=== PATIENT | female | born 1965 | race Asian ===

== ENCOUNTER → 2019-09-06 14:29 | Outpatient (CLI) | payer OTHER, SELFPAY ==
--- NOTE | 2019-09-06 | DI.MG.S_ITS ---
BILATERAL DIGITAL SCREENING MAMMOGRAM 3D/2D WITH CAD: 09/06/2019 CLINICAL: Routine screening. Comparison is made to exams dated: 05/08/2017 mammogram and 04/07/2016 mammogram - [facility]. The tissue of both breasts is heterogeneously dense. This may lower the sensitivity of mammography. Current study was also evaluated with a Computer Aided Detection (CAD) system. No significant masses, calcifications, or other findings are seen in either breast. There has been no significant interval change. IMPRESSION: NEGATIVE There is no mammographic evidence of malignancy. A 1 year screening mammogram is recommended. This exam was interpreted at Station ID: [id number]. NOTE: For mammograms, a report in lay terms will be sent to the patient. Approximately 15% of breast malignancies will not be visualized mammographically. In the management of a palpable breast mass, a negative mammogram must not discourage biopsy of a clinically suspicious lesion. Electronically Signed By: Errol villegas/akhil:09/06/2019 16:35:22 letter sent: Normal Exam ACR BI-RADS Category 1: Negative 3341F
== END ==
PROVIDERS: PCP Family Medicine; Referring Provider Family Medicine; Visit Provider Family Medicine
DX: Z12.31 Encounter for screening mammogram for malignant neoplasm of breast (principal)
CPT/HCPCS: 77063; 77067

== ENCOUNTER → 2021-07-24 14:10 | Outpatient (CLI) | payer OTHER, SELFPAY ==
--- NOTE | 2021-07-24 14:11 | DI.US.S_ITS ---
PROCEDURE: US PERIPH VENOUS LOW EXTREM LT INDICATIONS: PAIN, EDEMA TECHNIQUE: Real-time imaging, as well as color and pulse Doppler interrogation, were performed of the lower extremity deep veins from the inguinal ligament to the popliteal fossa. COMPARISON: None. FINDINGS: The common femoral, femoral and popliteal veins are normally compressible, and free of intraluminal thrombus. Color and pulse Doppler demonstrate normal phasic intraluminal flow. There is normal augmentation response to distal compression maneuver. Additional, dedicated ultrasound scanning is performed at the areas of pain. No focal ultrasound abnormalities are seen within these regions. IMPRESSION: Negative for deep venous thrombosis. Dictated by: Santos Platt M.D. on 07/24/2021 at 14:41 Approved by: Santos Platt M.D. on 07/24/2021 at 14:41
== END ==
PROVIDERS: PCP Family Medicine; Referring Provider Family Medicine; Visit Provider Family Medicine
DX: M79.89 Other specified soft tissue disorders (principal); M79.605 Pain in left leg
CPT/HCPCS: 93971

== ENCOUNTER 2022-06-29 21:17 | Emergency (ER) | payer OTHER, SELFPAY ==
[2022-06-29 21:24] VITALS: BP 167/91; PULSE 81; RESP 18; TEMP 36.5; O2SAT 98; BMI 26.5
--- NOTE | 2022-06-29 22:04 | ED.NAVMDI ---
HPI - Nausea/Vomiting/Diarrhea General Chief complaint: Nausea/Vomiting/Diarrhea Stated complaint: Thinks food poisoning Time Seen by Provider: 06/29/22 21:44 Source: patient Mode of arrival: Ambulatory Limitations: no limitations History of Present Illness HPI Narrative: Patient is a 56-year-old female who is here for evaluation of several hours of vomiting. She states that she think it was the oyster that she ate earlier this evening. She states that she baked the oysters and they were not raw. No one else ate the food. She states several hours later she started vomiting. She denies any fevers. Has not tried anything for the symptoms prior to arrival. Related Data Previous Rx's Medication Instructions Recorded ibuprofen 400 mg tablet See Rx Instructions PO TID PRN 03/19/21 pain #60 tabs ondansetron 4 mg disintegrating 4 mg PO Q6H PRN nausea and 06/30/22 tablet vomiting #14 tabs Allergies Allergy/AdvReac Type Severity Reaction Status Date / Time hydrocodone [From Vicodin] Allergy Severe LOSS OF Verified 06/06/20 08:48 VISION Review of Systems Constitutional Constitutional: Reports system reviewed and no additional complaints, except as documented Gastrointestinal Gastrointestinal: Reports system reviewed and no additional complaints, except as documented Genitourinary Genitourinary: Reports system reviewed and no additional complaints, except as documented Integumentary/Breasts Skin/Breast: Reports system reviewed and no additional complaints, except as documented Hematologic/Lymphatic On Anticoagulants: No Patient History Medical History Chicken pox Positive PPD (~1992) Skin rash Family History Mother Age: 86 Diabetes mellitus Social History marital status: Smoking Status: Current some day smoker alcohol intake: current substance use type: does not use Smoking Status: Current some day smoker Exam Initial Vital Signs Initial Vital Signs: Vital Signs Temperature 97.7 F 06/29/22 21:24 Pulse Rate 81 06/29/22 21:24 Respiratory Rate 18 06/29/22 21:24 Blood Pressure 167/91 H 06/29/22 21:24 Pulse Oximetry 98 06/29/22 21:24 Oxygen Delivery Method Room Air 06/29/22 21:24 [facility] Head: normal to inspection and normocephalic Resp Effort & Inspection: normal respiratory effort Auscultation: clear to auscultation bilaterally Cardio Rate: regular rate Rhythm: regular rhythm GI Inspection: normal to inspection Palpation: soft Skin General: no rashes or lesions noted Neuro General: patient alert, patient awake and moves all extremities Course Orders Ordered: Discontinued Medications Sodium Chloride (Normal Saline 0.9%) 1,000 mls @ 1,000 mls/hr IV BOLUS ONE Stop: 06/29/22 23:42 Last Infusion: 06/30/22 00:03 Dose: 0 mls/hr Documented By: Admin: 06/29/22 23:00 Dose: 1,000 mls/hr Documented By: GAVIN Ondansetron HCl (Ondansetron 4 Mg Odt) 4 mg PO NOW ONE Stop: 06/29/22 21:45 Last Admin: 06/29/22 22:08 Dose: 4 mg Documented By: FABIOLA Ondansetron HCl (Ondansetron 4 Mg/2 Ml Inj) 4 mg IV NOW ONE Stop: 06/29/22 22:44 Last Admin: 06/29/22 23:01 Dose: 4 mg Documented By: GAVIN Ondansetron HCl (Ondansetron 4 Mg Odt Prepack) 1 bottle MISC SEEINSTR ONE Stop: 06/30/22 00:25 Vital Signs Vital signs: Vital Signs - 8 hr 06/29/22 21:24 Temperature 97.7 F Pulse Rate 81 Respiratory Rate 18 Blood Pressure 167/91 H Pulse Oximetry 98 Oxygen Delivery Method Room Air MDM - Nausea/Vomiting/Diarrhea MDM Narrative Medical decision making narrative: Patient was given a dose of oral Zofran and then with a oral challenge she did vomit. She was then given IV Zofran and fluids. Afterwards she was able to tolerate a small amount of fluids. Did consider vibrio as a cause of her symptoms given the fact that she was eating oysters however she states that these were cooked. She is no rash. No fevers. We will hold on any antibiotics for now however she was informed that if her symptoms persist or worsen or she is vomiting despite the nausea medication that she needs to return to the emergency department for further evaluation. Both her and her was at bedside expressed understanding and agreement. Discharge Plan Departure Patient Disposition: Home Clinical Impression: Vomiting Instructions: DI for Vomiting -- Adult Activity Restrictions/Additional Instructions: I do recommend that you try to increase your fluid intake by drinking small amounts of fluid more frequently. Use the nausea medication as needed. Return to the emergency department for new or worsening symptoms. Prescriptions: New ondansetron 4 mg tablet,disintegrating 4 mg PO Q6H PRN (Reason: nausea and vomiting) Qty: 14 0RF No Action ibuprofen 400 mg tablet See Rx Instructions PO TID PRN (Reason: pain) Qty: 60 1RF Rx Instructions: Take one or two tablets up to 3 times a day as needed for pain Referrals: Mitch Schuster MD [Primary Care Provider] - Stand Alone Forms: Patient Portal/API
[2022-06-29] MEDS: ONDANSETRON 4 MG ODT PO (22:08)
[2022-06-29] MEDS: SODIUM CHLORIDE 0.9% 1,000 ML 1000 ML IV (23:00)
[2022-06-29] MEDS: ONDANSETRON 4 MG/2 ML INJ IV (23:01)
[2022-06-30] MEDS: ONDANSETRON 4 MG ODT PREPACK 1 BOTTLE MISC (00:32)
[2022-06-30 00:44] VITALS: BP 127/72; PULSE 70; RESP 16; O2SAT 99
== END 2022-06-30 00:45 | disposition home or self-care (01) ==
PROVIDERS: Emergency Provider Emergency Medicine; PCP Family Medicine
DX: R11.2 Nausea with vomiting, unspecified (principal)
CPT/HCPCS: 96361; 96374; 99284; J2405

== ENCOUNTER → 2022-10-07 12:12 | Outpatient (CLI) | payer OTHER, SELFPAY ==
[2022-10-07 13:15] LABS: Creatinine Urine Random 25.4 mg/dL
[2022-10-07 13:16] LABS: Microalbumin Urine Random < 0.6 mg/dL (0-1.6)
== END ==
PROVIDERS: PCP Family Medicine; Visit Provider Physician Assistant
DX: E78.5 Hyperlipidemia, unspecified (principal); I10 Essential (primary) hypertension; K21.9 Gastro-esophageal reflux disease without esophagitis; R73.01 Impaired fasting glucose; R73.03 Prediabetes
CPT/HCPCS: 82043; 82570

== ENCOUNTER → 2022-10-10 07:38 | Outpatient (CLI) | payer OTHER, SELFPAY ==
[2022-10-10 08:31] LABS: Add Manual Diff / Slide Review NO; Basophils Absolute Auto 100 /uL (0-100); Basophils Percent Auto 1.7 % (0-2); Eosinophils Absolute Auto 100 /uL (0-450); Eosinophils Percent Auto 2.9 % (2-4); Hematocrit 37.9 % (36-46); Hemoglobin 12.5 g/dL (12.0-16.0); Lymphocytes Absolute Auto 1800 /uL (1100-4500); Lymphocytes Percent Auto 46.9 % (25-40); Mean Corpuscular Hemoglobin 30.8 PG (26-34); Mean Corpuscular Volume 93.4 fL (80-100); Monocytes Absolute Auto 300 /uL (0-900); Monocytes Percent Auto 7.7 % (3-14); Neutrophils Absolute Auto 1600 /uL (1500-7000); Neutrophils Percent Auto 40.8 % (50-75); Platelet Count 247 X10^3/uL (150-400); Red Blood Cell Count 4.06 X10^6/uL (4.0-5.2); Red Cell Distribution Width 12.1 % (11.6-14.8); White Blood Cell Count 3.9 X10^3/uL (4.5-11.0)
[2022-10-10 08:46] LABS: Alanine Aminotransferase 24 IU/L (<35); Albumin 4.2 g/dL (3.5-5.0); Albumin Globulin Ratio 1.3 (1.0-2.8); Alkaline Phosphatase 60 U/L (38-126); Aspartate Aminotransferase 50 IU/L (14-36); BUN Creatinine Ratio 16.2 (6-22); Bilirubin Total 0.6 mg/dL (0.2-1.3); Blood Urea Nitrogen 11 mg/dL (7-17); Calcium 8.9 mg/dL (8.4-10.2); Carbon Dioxide 29 mmol/L (22-32); Chloride 105 mmol/L (98-107); Cholesterol 192 mg/dL (140-199); Estimated Glomerular Filt Rate > 60 mL/min (>60); Globulin 3.2 g/dL (1.7-4.1); Glucose 90 mg/dL (70-100); HDL Cholesterol 49 mg/dL (40-60); HEMOLYSIS < 15 (0-50); LDL Cholesterol Calculated 126 mg/dL (<100); Sodium 139 mmol/L (137-145); Total Protein 7.4 g/dL (6.3-8.2); Triglycerides 83 mg/dL (35-150)
[2022-10-10 09:15] LABS: TSH w/ Reflex to FT4 2.43 uIU/mL (0.47-4.68)
[2022-10-13 19:36] LABS: Fecal Immunochemical Test Negative (Negative)
== END ==
PROVIDERS: PCP Family Medicine; Referring Provider Physician Assistant; Visit Provider Physician Assistant
DX: E78.5 Hyperlipidemia, unspecified (principal); I10 Essential (primary) hypertension; K21.9 Gastro-esophageal reflux disease without esophagitis; M79.606 Pain in leg, unspecified; M79.89 Other specified soft tissue disorders; R21 Rash and other nonspecific skin eruption; R73.01 Impaired fasting glucose; Z12.11 Encounter for screening for malignant neoplasm of colon; Z12.39 Encounter for other screening for malignant neoplasm of breast
CPT/HCPCS: 36415; 80053; 80061; 82274; 84443; 85025

== ENCOUNTER → 2022-10-14 07:57 | Outpatient (CLI) | payer OTHER, SELFPAY ==
--- NOTE | 2022-10-14 07:58 | DI.MG.S_ITS ---
BILATERAL DIGITAL SCREENING MAMMOGRAM 3D/2D WITH CAD: 10/14/2022 CLINICAL: Routine screening. Comparison is made to exams dated: 09/06/2019 mammogram, 05/08/2017 mammogram, and 04/07/2016 mammogram - [facility]. Both breasts are heterogeneously dense, which may obscure small masses (category c / 51-75% glandular tissue). Current study was also evaluated with a Computer Aided Detection (CAD) system. No significant masses, calcifications, or other findings are seen in either breast. There has been no significant interval change. IMPRESSION: NEGATIVE There is no mammographic evidence of malignancy. A 1 year screening mammogram is recommended. Based on the Tyrer Cuzick model (a risk assessment model) the patient's lifetime risk is 12.1% and her 10 year risk is 4.7%. According to the ACR, ACS, and NCCN guidelines, an annual breast MRI exam along with mammogram is recommended if the patient's lifetime risk is 20% or greater. This exam was interpreted at Station ID: [id number]. NOTE: For mammograms, a report in lay terms will be sent to the patient. Approximately 15% of breast malignancies will not be visualized mammographically. In the management of a palpable breast mass, a negative mammogram must not discourage biopsy of a clinically suspicious lesion. Electronically Signed By: Errol villegas/akhil:10/14/2022 20:45:46 letter sent: Normal Exam ACR BI-RADS Category 1: Negative 3341F
== END ==
PROVIDERS: PCP Family Medicine; Referring Provider Family Medicine; Visit Provider Family Medicine
DX: Z12.31 Encounter for screening mammogram for malignant neoplasm of breast (principal); E78.5 Hyperlipidemia, unspecified; I10 Essential (primary) hypertension; K21.9 Gastro-esophageal reflux disease without esophagitis; M79.606 Pain in leg, unspecified; M79.89 Other specified soft tissue disorders; R21 Rash and other nonspecific skin eruption; R73.01 Impaired fasting glucose; Z12.11 Encounter for screening for malignant neoplasm of colon
CPT/HCPCS: 77063; 77067

== ENCOUNTER → 2023-02-25 11:17 | Outpatient (CLI) | payer OTHER, SELFPAY ==
--- NOTE | 2023-02-25 11:18 | DI.US.S_ITS ---
PROCEDURE: US PERIPH VENOUS LOW EXTREM RT INDICATIONS: PAIN TECHNIQUE: Real-time imaging, as well as color and pulse Doppler interrogation, were performed of the lower extremity deep veins from the inguinal ligament to the popliteal fossa, with documentation of the visualized calf veins. COMPARISON: None. FINDINGS: The common femoral, femoral, popliteal, and the visualized calf veins are normally compressible, and free of intraluminal thrombus. Color and pulse Doppler demonstrate normal phasic intraluminal flow. There is normal augmentation response to distal compression maneuver. IMPRESSION: No findings of lower extremity deep venous thrombosis. Dictated by: Laura Lockhart M.D. on 02/25/2023 at 12:22 Approved by: Laura Lockhart M.D. on 02/25/2023 at 12:23
== END ==
PROVIDERS: PCP Family Medicine; Referring Provider Family Medicine; Visit Provider Family Medicine
DX: M79.604 Pain in right leg (principal)
CPT/HCPCS: 93971

== ENCOUNTER 2023-05-21 07:36 | Emergency (ER) | payer OTHER, SELFPAY ==
--- NOTE | 2023-05-21 07:44 | DI.RAD.S_ITS ---
PROCEDURE: XR HAND RT MIN 3V INDICATIONS: injury at work TECHNIQUE: 3 views of the hand(s) acquired. COMPARISON: None. FINDINGS: Bones: No fractures or dislocations. Carpal bones are normally aligned. No suspicious bony lesions. Soft tissues: No suspicious soft tissue calcifications. Severe dorsal swelling. IMPRESSION: Severe dorsal swelling of the hand. No displaced fracture. If pain persists with conservative management, consider repeat radiographs in 10-14 days or cross sectional imaging such as CT or MRI for further assessment. Dictated by: El Haywood M.D. on 05/21/2023 at 8:28 Approved by: El Haywood M.D. on 05/21/2023 at 8:29
[2023-05-21 07:45] VITALS: BP 147/98; PULSE 91; RESP 18; TEMP 36.8; O2SAT 99; BMI 24.7
--- NOTE | 2023-05-21 08:09 | ED.GENADULT ---
HPI - General Adult General Chief complaint: Extremity Injury, Upper Stated complaint: rt hand injury/swelling Time Seen by Provider: 05/21/23 07:56 Source: patient Mode of arrival: Family Vehicle History of Present Illness HPI narrative: Patient is a 57-year-old female who last evening injured her right hand while she was at work. She states she got it caught in a piece of machinery. She states that immediately afterwards she thought she was going to be okay and she did sustain an abrasion to the back of the hand. As the night went on until this morning she has had more swelling. She is difficulty closing her fingers because of the swelling. The injuries located on the dorsum of the hand. No wrist elbow or shoulder injury. Related Data Previous Rx's Medication Instructions Recorded ibuprofen 400 mg tablet See Rx Instructions PO TID PRN 03/19/21 pain #60 tabs omeprazole 20 mg capsule,delayed 20 mg PO BEDTIME #90 caps 10/07/22 release Allergies Allergy/AdvReac Type Severity Reaction Status Date / Time hydrocodone [From Vicodin] Allergy Severe LOSS OF Verified 05/21/23 08:05 VISION Review of Systems Constitutional Constitutional: Reports system reviewed and no additional complaints, except as documented Musculoskeletal Musculoskeletal: Reports system reviewed and no additional complaints, except as documented Integumentary/Breasts Skin/Breast: Reports system reviewed and no additional complaints, except as documented Neurologic Neurologic: Reports system reviewed and no additional complaints, except as documented Patient History Medical History Encounter for screening for cervical cancer Skin rash Positive PPD (~1992) Chicken pox Family History Mother Age: 86 Diabetes mellitus Social History marital status: Smoking Status: Never smoker alcohol intake: current substance use type: does not use Smoking Status: Never smoker alcohol intake frequency: 0-2 drinks per day Substance Use Type: does not use Exam Initial Vital Signs Initial Vital Signs: Vital Signs Temperature 98.3 F 05/21/23 07:45 Pulse Rate 91 H 05/21/23 07:45 Respiratory Rate 18 05/21/23 07:45 Blood Pressure 147/98 H 05/21/23 07:45 Pulse Oximetry 99 05/21/23 07:45 Oxygen Delivery Method Room Air 05/21/23 07:45 Const General: cooperative, comfortable and No ill appearing Cardio Pulses: radial pulses present on the right Skin Other: Small abrasion on the dorsum of the right hand at the base of the index and middle fingers. Ecchymosis around the area as well. Neuro Sensory Exam: no sensory deficits noted Extrem Other: Swelling that is localized to the dorsum of the right hand. Minimal extension into the fingers. Course Orders Ordered: ED Orders 05/21/23 07:44 XR hand RT min 3V Stat Vital Signs Vital signs: Vital Signs - 8 hr 05/21/23 07:45 Temperature 98.3 F Pulse Rate 91 H Respiratory Rate 18 Blood Pressure 147/98 H Pulse Oximetry 99 Oxygen Delivery Method Room Air Medical Decision Making Imaging Data Extremity x-ray #1: Radiologist's Impression: PROCEDURE: XR HAND RT MIN 3V INDICATIONS: injury at work TECHNIQUE: 3 views of the hand(s) acquired. COMPARISON: None. FINDINGS: Bones: No fractures or dislocations. Carpal bones are normally aligned. No suspicious bony lesions. Soft tissues: No suspicious soft tissue calcifications. Severe dorsal swelling. IMPRESSION: Severe dorsal swelling of the hand. No displaced fracture. If pain persists with conservative management, consider repeat radiographs in 10-14 days or cross sectional imaging such as CT or MRI for further assessment. [facility] Narrative Medical decision making narrative: She does have swelling on the dorsum of the hand. There is a small abrasion however I have no suspicion that there is an infection. No fractures noted on the x-rays. She was neurovascularly intact. Will discharge home with conservative treatment for now. Patient was informed of this. Will do light duty at work for the next couple days. She was given return precautions and follow-up instructions. She expressed understanding and agreement. Discharge Plan Departure Patient Disposition: Home Clinical Impression: Contusion of hand, right, Abrasion of skin Instructions: How To Perform RICE (Rest, Ice, Compress, Elevate) Activity Restrictions/Additional Instructions: You can wash your hands like normal. You can use soap and water. I do recommend keeping your hand elevated and using ice. Return to the emergency department for new symptoms. Prescriptions: No Action omeprazole 20 mg capsule,delayed release(DR/EC) 20 mg PO BEDTIME Qty: 90 1RF Rx Instructions: Take one capsule one hour prior to bedtime for reflux ibuprofen 400 mg tablet See Rx Instructions PO TID PRN (Reason: pain) Qty: 60 1RF Rx Instructions: Take one or two tablets up to 3 times a day as needed for pain Referrals: Mitch Schuster MD [Primary Care Provider] - Stand Alone Forms: Patient Portal/API, Work Release Note
== END 2023-05-21 08:58 | disposition home or self-care (01) ==
PROVIDERS: Emergency Provider Emergency Medicine; PCP Family Medicine
DX: S60.221A Contusion of right hand, initial encounter (principal); S60.511A Abrasion of right hand, initial encounter; X58.XXXA Exposure to other specified factors, initial encounter
CPT/HCPCS: 73130; 99281; 99283

== ENCOUNTER 2024-03-12 03:54 | Emergency (ER) | payer OTHER, SELFPAY ==
[2024-03-12 04:14] VITALS: BP 159/83; PULSE 99; RESP 18; TEMP 36.3; O2SAT 100; BMI 24.7
--- NOTE | 2024-03-12 04:25 | DI.CT.S_ITS ---
PROCEDURE: CT ANGIO HEAD AND NECK INDICATIONS: sudden onset of dizziness TECHNIQUE: After the administration of intravenous contrast, 1 mm thick sections acquired from the aortic arch through the [place] of [place]. 3-dimensional wuzuito-tiqwveqoz-lmuhvhsubw (MIP) and/or volume rendering reformats were acquired of the central intracranial vasculature and neck separately. For radiation dose reduction, the following was used: automated exposure control, adjustment of mA and/or kV according to patient size. COMPARISON: None. FINDINGS: Image quality: Diagnostic HEAD ANGIOGRAPHY: Anterior circulation: ICAs: Overall patent. ACAs: Hypoplastic left A1, likely congenital. The more distal ACAS appear patent MCAs: Patent AComm: No aneurysm Venous sinuses: Patent Posterior circulation: Dominance: Left Vertebral arteries: The right vertebral artery is not seen in the intracranial aspect. Basilar artery: Patent PComms: Moderate size bilaterally. blue line trimmer: Patent NECK ANGIOGRAPHY: Aortic arch and subclavian arteries: Mild calcifications CCAs: Patent ICA origins (by NASCET criteria): No hemodynamically significant narrowing. ICAs: Patent ECAs: Patent Vertebral arteries: Very diminutive flow in the right vertebral artery, with intermittent areas of non opacification. There is some kinking at the level of C2 of the left vertebral artery. Soft tissues: No significant mass, aneurysm, or lymphadenopathy Lung apices: No pneumothorax Bones: Degenerative changes. Small amount of fluid in the right maxillary. IMPRESSION: The flow in the non dominant right vertebral arteries very diminutive, with multiple areas of non opacification, this is of uncertain acuity. The large, dominant left vertebral artery is patent, with some kinking seen at C2. There is also flow through the mbqhnj-so-Korftt through moderate size posterior communicating arteries. No high-grade stenosis or large vessel occlusion otherwise. If there is high concern for infarct, consider MRI. No significant discrepancy from preliminary report. Any quantitative measurements of stenosis were performed using NASCET criteria. Dictated by: Missael Beckham M.D. on 03/12/2024 at 8:14 Approved by: Missael Beckham M.D. on 03/12/2024 at 8:23
--- NOTE | 2024-03-12 04:25 | DI.CT.S_ITS ---
PROCEDURE: CT HEAD/BRAIN WO CON INDICATIONS: sudden onset of dizziness TECHNIQUE: Noncontrast 4.5 mm thick angled axial sections acquired from the foramen magnum to the vertex, with coronal and sagittal reformats. For radiation dose reduction, the following was used: automated exposure control, adjustment of mA and/or kV according to patient size. COMPARISON: None. FINDINGS: Image quality: Diagnostic CSF spaces: Basal cisterns are patent. Lateral ventricles are symmetric. Volume: Vascular calcifications. Periventricular white matter disease is commonly seen with chronic microangiopathy. Volume loss is present. These findings are mild Brain: No intracranial hemorrhage. Koch-white differentiation is grossly maintained. Craniofacial structures: Unremarkable partially visualized craniofacial structures. Incidentally noted empty sella. IMPRESSION: No acute intracranial abnormality. If there is high concern for infarct, consider MRI. Agree with preliminary report. Dictated by: Missael Beckham M.D. on 03/12/2024 at 8:12 Approved by: Missael Beckham M.D. on 03/12/2024 at 8:14
[2024-03-12] MEDS: ONDANSETRON 4 MG/2 ML INJ IV (04:46)
[2024-03-12 04:53] LABS: Add Manual Diff / Slide Review NO; Basophils Absolute Auto 100 /uL (0-100); Basophils Percent Auto 0.8 % (0-2); Eosinophils Absolute Auto 100 /uL (0-450); Eosinophils Percent Auto 1.7 % (2-4); Hematocrit 37.9 % (36-46); Hemoglobin 12.6 g/dL (12.0-16.0); Lymphocytes Absolute Auto 3300 /uL (1100-4500); Lymphocytes Percent Auto 47.5 % (25-40); Mean Corpuscular HGB Conc 33.1 % (30-36); Mean Corpuscular Volume 93.5 fL (80-100); Monocytes Absolute Auto 500 /uL (0-900); Monocytes Percent Auto 6.6 % (3-14); Neutrophils Absolute Auto 3000 /uL (1500-7000); Neutrophils Percent Auto 43.4 % (50-75); Platelet Count 266 X10^3/uL (150-400); Red Blood Cell Count 4.05 X10^6/uL (4.0-5.2); Red Cell Distribution Width 12.4 % (11.6-14.8)
[2024-03-12 05:03] LABS: BUN Creatinine Ratio 27.1 (6-22); Blood Urea Nitrogen 19 mg/dL (7-17); Calcium 9.2 mg/dL (8.4-10.2); Carbon Dioxide 23 mmol/L (22-32); Chloride 105 mmol/L (98-107); Estimated Glomerular Filt Rate > 60 mL/min (>60); Glucose 148 mg/dL (80-110); HEMOLYSIS 16 (0-50); Potassium 2.9 mmol/L (3.4-5.1); Sodium 137 mmol/L (137-145)
--- NOTE | 2024-03-12 05:08 | EKG_ITS ---
[address] [address] Test Date: 2024-03-12 Pat Name: Diana Foster Department: [facility] Room: Gender: Female [employer] Director: ABDULLAHI : 1965 Requested By: Order Number: [id number] Reading MD: Dre Kaminski Measurements Intervals [place] Rate: 90 P: 37 MN: 210 QRS: 62 QRSD: 74 T: 73 QT: 374 QTc: 457 Interpretive Statements Sinus rhythm with 1st degree AV block Nonspecific T wave abnormality Electronically Signed On 03-12-2024 17:05:38 PST by Dre Kaminski
[2024-03-12] MEDS: MECLIZINE HCL 12.5 MG TABLET 25 MG PO (05:11)
[2024-03-12 05:15] LABS: Troponin I < 0.012 ng/mL (0.01-0.034)
--- NOTE | 2024-03-12 05:15 | PC.NURSE ---
Pt taken to imaging via wheel chair with diagnostic technician
[2024-03-12 07:58] VITALS: BP 178/83; PULSE 85; O2SAT 99
--- NOTE | 2024-03-12 08:10 | ED_ITS ---
HPI - General Adult General Chief complaint: Dizziness Stated complaint: vomiting, dizzy Time Seen by Provider: 03/12/24 08:05 Source: patient and family Mode of arrival: Ambulatory History of Present Illness HPI narrative: Patient was a 58-year-old female. Not on anticoagulation. Is here for evaluation of vertigo and vomiting. States her symptoms started last evening. She came home from work. When she walked up the stairs she started to feel very lightheaded. She did feel like the room was spinning. This started to cause her to vomit. She did not have chest pain, shortness of breath, palpitations, headache. No numbness and tingling in her upper and lower extremities. She has been here in the emergency department several hours prior to my evaluation she states she was now completely resolved it was no longer vomiting and can walk without any difficulty. She was never had any symptoms like this in the past. Related Data Previous Rx's Medication Instructions Recorded omeprazole 20 mg capsule,delayed 20 mg PO BEDTIME #90 caps 10/07/22 release ibuprofen 400 mg tablet See Rx Instructions PO TID PRN 05/26/23 pain #60 tabs benzonatate 200 mg capsule 200 mg PO BID PRN cough #28 caps 09/08/23 albuterol sulfate 90 mcg/actuation 2 puff inhalation Q4-6H PRN 09/16/23 aerosol inhaler shortness of breath or wheezing #6.7 grams doxycycline monohydrate 100 mg 100 mg PO BID #20 caps 09/16/23 capsule inhalational spacing device #1 ea 09/16/23 (BreatheRite MDI Spacer) meclizine 50 mg tablet 50 mg PO BID PRN dizziness #14 tabs 03/12/24 Allergies Allergy/AdvReac Type Severity Reaction Status Date / Time hydrocodone [From Vicodin] Allergy Severe LOSS OF Verified 09/16/23 08:53 VISION Review of Systems Review of Systems ROS Unobtainable: All systems reviewed & are unremarkable except as noted in HPI and below Patient History Medical History Encounter for screening for cervical cancer Skin rash Positive PPD (~1992) Chicken pox Family History Mother Age: 87 Diabetes mellitus Social History (Reviewed 03/12/24 @ 08:11 by ALEX Hayden marital status: Smoking Status: Never smoker alcohol intake: current substance use type: does not use Smoking Status: Never smoker alcohol intake frequency: 0-2 drinks per day Exam Initial Vital Signs Initial Vital Signs: Vital Signs Temperature 97.4 F L 03/12/24 04:14 Pulse Rate 99 H 03/12/24 04:14 Respiratory Rate 18 03/12/24 04:14 Blood Pressure 159/83 H 03/12/24 04:14 Pulse Oximetry 100 03/12/24 04:14 Oxygen Delivery Method Room Air 03/12/24 04:14 Const General: cooperative, comfortable and No ill appearing HENMT Head: normal to inspection and normocephalic Face and sinus: normal facial exam Resp Effort & Inspection: normal respiratory effort Cardio Rate: regular rate Neuro General: patient alert, patient awake, patient oriented x3 and moves all extremities Cognition: normal cognition Speech: speech normal Gait: normal gait Motor: muscle tone normal throughout Extrem General: normal to inspection Scores GCS Sabi coma scale eye opening: Spontaneous [place] coma scale verbal response: Orientated Sabi coma scale motor response: Obey commands [place] coma scale total score: 15 Course Orders Ordered: ED Orders 03/12/24 04:25 CT angio head and neck Stat CT head/brain wo con Stat EKG-12 Lead Stat 03/12/24 04:40 Basic Metabolic Panel Stat Complete Blood Count AUTO DIFF Stat Troponin I Stat Discontinued Medications Meclizine HCl (Meclizine Hcl 12.5 Mg Tablet) 25 mg PO NOW ONE Stop: 03/12/24 04:26 Last Admin: 03/12/24 05:11 Dose: 25 mg Documented By: LILY Ondansetron HCl (Ondansetron 4 Mg/2 Ml Inj) 4 mg IV NOW ONE Stop: 03/12/24 04:26 Last Admin: 03/12/24 04:46 Dose: 4 mg Documented By: LILY Vital Signs Vital signs: Vital Signs - 8 hr 03/12/24 04:14 03/12/24 07:58 03/12/24 07:58 Temperature 97.4 F L Pulse Rate 99 H 85 Respiratory Rate 18 Blood Pressure 159/83 H 178/83 H Pulse Oximetry 100 99 Oxygen Delivery Method Room Air Medical Decision Making Lab Data Lab results reviewed: Yes I reviewed the patient's lab results. 03/12/24 04:40 03/12/24 04:40 Labs: Lab Results 03/12/24 Range/Units 04:40 WBC 7.0 (4.5-11.0) X10^3/uL RBC 4.05 (4.0-5.2) X10^6/uL Hgb 12.6 (12.0-16.0) g/dL Hct 37.9 (36-46) % MCV 93.5 (80-100) fL MCH 31.0 (26-34) PG MCHC 33.1 (30-36) % RDW 12.4 (11.6-14.8) % Plt Count 266 (150-400) X10^3/uL Neut % (Auto) 43.4 L (50-75) % Lymph % (Auto) 47.5 H (25-40) % Ashley % (Auto) 6.6 (3-14) % Eos % (Auto) 1.7 L (2-4) % Baso % (Auto) 0.8 (0-2) % Neut # (Auto) 3000 (0759-2957) /uL Lymph # (Auto) 3300 (3183-0652) /uL Ashley # (Auto) 500 (0-900) /uL Eos # (Auto) 100 (0-450) /uL Baso # (Auto) 100 (0-100) /uL Sodium 137 (137-145) mmol/L Potassium 2.9 L (3.4-5.1) mmol/L Chloride 105 (98-107) mmol/L Carbon Dioxide 23 (22-32) mmol/L BUN 19 H (7-17) mg/dL Creatinine 0.70 (0.52-1.04) mg/dL Estimated GFR > 60 (>60) mL/min BUN/Creatinine Ratio 27.1 H (6-22) Glucose 148 H (80-110) mg/dL Calcium 9.2 (8.4-10.2) mg/dL Troponin I < 0.012 (0.01-0.034) ng/mL Imaging Data CT scan - head: Radiologist's Impression: No evidence of acute intracranial pathology CTA - brain/neck: Radiologist's Impression: Left vertebral artery is dominant and 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 This may be developmental No intracranial aneurysm or AVM Unremarkable CT enhancement of the brain parenchyma There was no stenosis of the right common carotid artery bifurcation and right proximal internal carotid artery based on criteria There was no stenosis of the left common carotid artery bifurcation and proximal left internal carotid artery Left dominant vertebral artery ECG Data Attestation: I personally reviewed and interpreted this ECG as follows: Interpretation: Sinus rhythm Ventricular rate 90 First-degree AV block HI interval 2 and 0 milliseconds Normal QRS Normal QTC Nonspecific ST T wave changes MDM Narrative Medical decision making narrative: After several hours waiting in the emergency department to be seen all of her symptoms have completely resolved. CT scans of her head and CTA of the head and neck show no acute pathology. She does not have any sinus congestion. No palpitations. EKG is unremarkable. I do suspect that this is peripheral vertigo. I discussed this with her. Will have her contact her primary care doctor for follow-up. Low suspicion for CVA/TIA. She was given return precautions. She expressed understanding and agreement. Discharge Plan Departure Patient Disposition: Home Clinical Impression: Vertigo Instructions: DI for Vertigo Activity Restrictions/Additional Instructions: Recommend that you continue to take all of your medications as directed. Recommend that you contact your primary care doctor for a follow-up. Return to the emergency department for new or worsening symptoms. Prescriptions: New meclizine 50 mg tablet 50 mg PO BID PRN (Reason: dizziness) Qty: 14 0RF No Action omeprazole 20 mg capsule,delayed release(DR/EC) 20 mg PO BEDTIME Qty: 90 1RF Rx Instructions: Take one capsule one hour prior to bedtime for reflux benzonatate 200 mg capsule 200 mg PO BID PRN (Reason: cough) Qty: 28 0RF doxycycline monohydrate 100 mg capsule 100 mg PO BID Qty: 20 0RF Rx Instructions: Take one capsule twice daily for 10 days albuterol sulfate 90 mcg/actuation HFA aerosol inhaler 2 puff inhalation Q4-6H PRN (Reason: shortness of breath or wheezing) Qty: 6.7 0RF Rx Instructions: Inhale 2 puffs every 4-6 hours as needed for cough and chest congestion (DME) BreatheRite MDI Spacer Spacer See Rx Instructions .Route Qty: 1 0RF Rx Instructions: As directed ibuprofen 400 mg tablet See Rx Instructions PO TID PRN (Reason: pain) Qty: 60 1RF Rx Instructions: Take one or two tablets up to 3 times a day as needed for pain Referrals: Mitch Schuster MD [Primary Care Provider] - Stand Alone Forms: Patient Portal/API/Survey
[2024-03-12 08:38] VITALS: PULSE 88; RESP 18; O2SAT 98
== END 2024-03-12 08:41 | disposition home or self-care (01) ==
PROVIDERS: Emergency Medicine; Emergency Provider Emergency Medicine; PCP Family Medicine
DX: H81.399 Other peripheral vertigo, unspecified ear (principal); R11.10 Vomiting, unspecified
CPT/HCPCS: 36415; 70450; 70496; 70498; 80048; 84484; 85025; 93005; 96374; 99284; J2405; Q9967

== ENCOUNTER → 2024-03-22 10:25 | Outpatient (CLI) | payer OTHER, SELFPAY ==
[2024-03-22 11:24] LABS: BUN Creatinine Ratio 22.9 (6-22); Blood Urea Nitrogen 16 mg/dL (7-17); Calcium 9.5 mg/dL (8.4-10.2); Carbon Dioxide 25 mmol/L (22-32); Chloride 107 mmol/L (98-107); Estimated Glomerular Filt Rate > 60 mL/min (>60); Glucose 97 mg/dL (80-110); HEMOLYSIS < 15 (0-50); Potassium 4.2 mmol/L (3.4-5.1); Sodium 140 mmol/L (137-145)
== END ==
PROVIDERS: PCP Family Medicine; Referring Provider Physician Assistant; Visit Provider Physician Assistant
DX: E87.6 Hypokalemia (principal)
CPT/HCPCS: 36415; 80048

== ENCOUNTER 2024-07-15 21:42 | Emergency (ER) | payer OTHER, SELFPAY ==
[2024-07-15 21:48] VITALS: BP 143/93; PULSE 103; RESP 16; TEMP 36.6; O2SAT 98; BMI 25.6
--- NOTE | 2024-07-15 21:52 | EKG_ITS ---
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
[2024-07-15] MEDS: ONDANSETRON 4 MG/2 ML INJ IV (22:26)
[2024-07-15 22:33] LABS: Add Manual Diff / Slide Review NO; Basophils Absolute Auto 0 /uL (0-100); Basophils Percent Auto 0.7 % (0-2); Eosinophils Absolute Auto 100 /uL (0-450); Eosinophils Percent Auto 2.6 % (2-4); Hematocrit 35.6 % (36-46); Hemoglobin 11.8 g/dL (12.0-16.0); Lymphocytes Absolute Auto 2500 /uL (1100-4500); Lymphocytes Percent Auto 49.8 % (25-40); Mean Corpuscular HGB Conc 33.1 % (30-36); Mean Corpuscular Hemoglobin 31.3 PG (26-34); Mean Corpuscular Volume 94.7 fL (80-100); Monocytes Absolute Auto 400 /uL (0-900); Monocytes Percent Auto 7.6 % (3-14); Neutrophils Absolute Auto 2000 /uL (1500-7000); Neutrophils Percent Auto 39.3 % (50-75); Platelet Count 248 X10^3/uL (150-400); Red Blood Cell Count 3.76 X10^6/uL (4.0-5.2); Red Cell Distribution Width 12.2 % (11.6-14.8)
[2024-07-15 22:42] LABS: Alanine Aminotransferase 30 IU/L (<35); Albumin 4.4 g/dL (3.5-5.0); Albumin Globulin Ratio 1.6 (1.0-2.8); Alkaline Phosphatase 52 U/L (38-126); Aspartate Aminotransferase 59 IU/L (14-36); BUN Creatinine Ratio 25.7 (6-22); Bilirubin Total 0.4 mg/dL (0.2-1.3); Blood Urea Nitrogen 18 mg/dL (7-17); Calcium 8.9 mg/dL (8.4-10.2); Carbon Dioxide 27 mmol/L (22-32); Chloride 103 mmol/L (98-107); Creatine Kinase 109 U/L (30-135); Estimated Glomerular Filt Rate > 60 mL/min (>60); Globulin 2.8 g/dL (1.7-4.1); Glucose 134 mg/dL (70-99); HEMOLYSIS < 15 (0-50); Potassium 3.3 mmol/L (3.4-5.1); Sodium 138 mmol/L (137-145); Total Protein 7.2 g/dL (6.3-8.2)
[2024-07-15 22:54] LABS: Troponin I < 0.012 ng/mL (0.01-0.034)
[2024-07-16 02:17] VITALS: BP 135/63; PULSE 83; RESP 16; TEMP 36.6; O2SAT 98
[2024-07-16 03:02] VITALS: BP 149/99; PULSE 97; O2SAT 97
--- NOTE | 2024-07-16 03:15 | ED.DIZZY ---
HPI - Dizziness General Chief Complaint: Dizziness Stated Complaint: Sudden Dizziness. Began 2 hours ago Time Seen by Provider: 07/16/24 03:12 Source: patient Mode of arrival: Ambulatory History of Present Illness HPI Narrative: 58-year-old female felt dizzy after eating food and having emesis, no abdominal discomfort. No associated chest discomfort. She felt better after the event, no longer feeling dizzy. No focal weakness to face arm or leg. No focal numbness to face arm or leg. No one around her with any similar symptoms. No history of prior strokes or TIAs known. No visual changes. No trouble swallowing. No trouble with speech. No trouble with gait. Related Data Previous Rx's Medication Instructions Recorded valacyclovir 1 gram tablet 1,000 mg PO TID #21 tabs 03/22/24 Allergies Allergy/AdvReac Type Severity Reaction Status Date / Time hydrocodone [From Vicodin] Allergy Severe LOSS OF Verified 03/22/24 09:51 VISION Patient History Medical History (Updated 07/16/24 @ 03:31 by Bereket Victoria MD) Vertigo Encounter for screening for cervical cancer Skin rash Positive PPD (~1992) Chicken pox Family History Mother Age: 88 Diabetes mellitus Social History marital status: Smoking Status: Never smoker alcohol intake: current substance use type: does not use Smoking Status: Never smoker alcohol intake frequency: 0-2 drinks per day Exam Narrative Exam Narrative: GENERAL: Well-developed patient, in mild distress. HEAD: Atraumatic. Normocephalic. EYES: Pupils equal round and reactive. Extraocular motions intact. No scleral icterus. No injection or drainage. ENT: Nose without bleeding, purulent drainage. Throat without erythema, tonsillar hypertrophy or exudate. Airway patent. NECK: Trachea midline. Non tender CARDIOVASCULAR: Regular rate and rhythm without murmurs, gallops, or rubs. RESPIRATORY: Clear to auscultation. Breath sounds equal bilaterally. No wheezes, rales, or rhonchi. GASTROINTESTINAL: Abdomen soft, non-tender, nondistended. EXTREMITIES: No edema or joint tenderness. BACK: Nontender without deformity or crepitance. No flank tenderness. NEURO: AOx3. Motor 5/5 bilateral upper extremities, motor 5/5 bilateral lower extremities. Cranial nerve functions normal as tested. Light touch sensation intact face arms legs bilaterally symmetrically. [id number] testing bilaterally normal. SKIN: No rash or erythema of visible areas Initial Vital Signs Initial Vital Signs: Vital Signs Temperature 97.8 F 07/15/24 21:48 Pulse Rate 103 H 07/15/24 21:48 Respiratory Rate 16 07/15/24 21:48 Blood Pressure 143/93 H 07/15/24 21:48 Pulse Oximetry 98 07/15/24 21:48 Oxygen Delivery Method Room Air 07/15/24 21:48 Course Orders Ordered: ED Orders 07/15/24 21:52 EKG-12 Lead Stat 07/15/24 22:16 CMP [Comprehensive Metabolic Panel] Stat Complete Blood Count AUTO DIFF Stat Troponin & CK Cardiac Panel Stat Discontinued Medications Sodium Chloride (Normal Saline 0.9%) 1,000 mls @ 1,000 mls/hr IV BOLUS ONE Stop: 07/16/24 04:12 Ondansetron HCl (Ondansetron 4 Mg/2 Ml Inj) 4 mg IV NOW ONE Stop: 07/15/24 21:53 Last Admin: 07/15/24 22:26 Dose: 4 mg Documented By: KORY Potassium Chloride (Potassium Chloride 20 Meq/15 Ml Udc) 40 meq PO NOW ONE Stop: 07/16/24 03:16 Last Admin: 07/16/24 03:32 Dose: 40 meq Documented By: KORY Vital Signs Vital signs: Vital Signs - 8 hr 07/16/24 02:17 07/16/24 03:02 07/16/24 03:02 Temperature 97.8 F Pulse Rate 83 97 H Respiratory Rate 16 Blood Pressure 135/63 149/99 H Pulse Oximetry 98 97 Oxygen Delivery Method Room Air 07/16/24 03:30 07/16/24 03:30 Temperature Pulse Rate 85 Respiratory Rate 18 Blood Pressure 125/83 Pulse Oximetry 97 Oxygen Delivery Method MDM - Dizziness Lab Data Attestation: I reviewed the patient's lab results. Lab results narrative: White blood cell count 5000, hemoglobin 11.8, platelets adequate. Glucose 134. BUN 18 with creatinine 0.70. Potassium 3.3 low, sodium 138 normal. Serum CO2 27 normal. AST slight elevation with other liver functions normal. Troponin negative/unmeasurable. 07/15/24 22:16 07/15/24 22:16 Labs: Lab Results 07/15/24 Range/Units 22:16 WBC 5.0 (4.5-11.0) X10^3/uL RBC 3.76 L (4.0-5.2) X10^6/uL Hgb 11.8 L (12.0-16.0) g/dL Hct 35.6 L (36-46) % MCV 94.7 (80-100) fL MCH 31.3 (26-34) PG MCHC 33.1 (30-36) % RDW 12.2 (11.6-14.8) % Plt Count 248 (150-400) X10^3/uL Neut % (Auto) 39.3 L (50-75) % Lymph % (Auto) 49.8 H (25-40) % [place] % (Auto) 7.6 (3-14) % Eos % (Auto) 2.6 (2-4) % Baso % (Auto) 0.7 (0-2) % Neut # (Auto) 2000 (7186-3215) /uL Lymph # (Auto) 2500 (7440-6713) /uL [place] # (Auto) 400 (0-900) /uL Eos # (Auto) 100 (0-450) /uL Baso # (Auto) 0 (0-100) /uL Sodium 138 (137-145) mmol/L Potassium 3.3 L (3.4-5.1) mmol/L Chloride 103 (98-107) mmol/L Carbon Dioxide 27 (22-32) mmol/L BUN 18 H (7-17) mg/dL Creatinine 0.70 (0.52-1.04) mg/dL Estimated GFR > 60 (>60) mL/min BUN/Creatinine Ratio 25.7 H (6-22) Glucose 134 H (70-99) mg/dL Calcium 8.9 (8.4-10.2) mg/dL Total Bilirubin 0.4 (0.2-1.3) mg/dL AST 59 H (14-36) IU/L ALT 30 (<35) IU/L Alkaline Phosphatase 52 (38-126) U/L Total Creatine Kinase 109 (30-135) U/L Troponin I < 0.012 (0.01-0.034) ng/mL Total Protein 7.2 (6.3-8.2) g/dL Albumin 4.4 (3.5-5.0) g/dL Globulin 2.8 (1.7-4.1) g/dL Albumin/Globulin Ratio 1.6 (1.0-2.8) ECG Data Attestation: I personally reviewed and interpreted this ECG as follows: Interpretation: Normal sinus rhythm with rate of 94, no obvious ST segment elevation or depression changes. NM 168, QRS 64, QTC 452. MDM Narrative Medical decision making narrative: 58-year-old female with nausea vomiting and dizziness after eating food, felt better after the episode of emesis, nonbloody. Afebrile, sirs screen negative. No longer feeling dizzy. Reassuring nonfocal neuro exam. Screening labs sent for triage remarkable for lobes potassium level, given oral potassium. CT head and CT angiogram head and neck vessels was ordered, offered, however her symptoms seemed to resolve, she would not want to have any further testing. She was willing to take her supplementation potassium. She decided that she would like to go home with no further testing. She went home with family. Further evaluation as an outpatient advised. Return precautions discussed. Discharge Plan Departure Patient Disposition: Home Clinical Impression: Dizziness, Nausea & vomiting, Hypokalemia Instructions: Nausea and Vomiting-Adult, DI for Dizziness-Nonvertigo Activity Restrictions/Additional Instructions: Nausea and vomiting with some dizziness, symptoms seemed to be better and have resolved. No fever. Dizziness seemed to be resolved. We did discuss further testing that might involve CT scanning of the brain, CT angiogram scanning of the head vessels in the neck vessels, you declined these tests for now. Low potassium on blood testing was noted, you were given oral potassium repletion. You felt better and did not want to have any further testing. Consider further evaluation as an outpatient. Return earlier to this/nearest emergency department for any change worsening symptoms or any concerns prior. Prescriptions: No Action valacyclovir 1 gram tablet 1,000 mg PO TID Qty: 21 0RF Referrals: Mitch Schuster MD [Primary Care Provider] - Stand Alone Forms: Patient Portal/API/Survey
[2024-07-16 03:30] VITALS: BP 125/83; PULSE 85; RESP 18; O2SAT 97
[2024-07-16] MEDS: POTASSIUM CHLORIDE 20 MEQ/15 ML UDC 40 MEQ PO (03:32)
== END 2024-07-16 03:55 | disposition home or self-care (01) ==
PROVIDERS: Emergency Provider Emergency Medicine; PCP Family Medicine
DX: R42 Dizziness and giddiness (principal); E87.6 Hypokalemia; R11.2 Nausea with vomiting, unspecified
CPT/HCPCS: 36415; 80053; 82550; 84484; 85025; 93005; 93010; 96374; 99284; J2405

== ENCOUNTER → 2025-01-05 10:05 | Outpatient (CLI) | payer OTHER, SELFPAY ==
--- NOTE | 2025-01-05 10:07 | DI.RAD.S_ITS ---
PROCEDURE: XR CHEST 2V INDICATIONS: Persistent cough x one month TECHNIQUE: 2 views of the chest were acquired. COMPARISON: [facility], CT, CT ANGIO HEAD AND NECK, 03/12/2024, 5:17. FINDINGS: Surgical changes and devices: None. Lungs and pleura: No consolidation. Possible small pulmonary nodules. No pleural effusions or pneumothorax. Mediastinum: Mediastinal contours are normal. Heart size is normal. Bones and chest wall: No suspicious bony abnormalities. Soft tissues appear unremarkable. IMPRESSION: No consolidation. No pleural effusion. Concern for small pulmonary nodules. -Recommend CT chest for further evaluation Dictated by: Errol Rodriguez M.D. on 01/05/2025 at 10:25 Approved by: Errol Rodriguez M.D. on 01/05/2025 at 10:30
== END ==
PROVIDERS: PCP Family Medicine; Referring Provider Physician Assistant; Visit Provider Physician Assistant
DX: R05.9 Cough, unspecified (principal)
CPT/HCPCS: 71046

== ENCOUNTER → 2025-01-12 09:53 | Outpatient (CLI) | payer OTHER, SELFPAY ==
[2025-01-12 10:24] LABS: Add Manual Diff / Slide Review NO; Hematocrit 37.5 % (36-46); Hemoglobin 12.5 g/dL (12.0-16.0); Lymphocytes Absolute Auto 1500 /uL (1100-4500); Mean Corpuscular HGB Conc 33.3 % (30-36); Mean Corpuscular Hemoglobin 30.9 PG (26-34); Mean Corpuscular Volume 92.6 fL (80-100); Platelet Count 283 X10^3/uL (150-400)
[2025-01-12 10:37] LABS: Hemoglobin A1C% w Est Avg Glu 5.4 % (4.0-6.0)
[2025-01-12 11:13] LABS: Alanine Aminotransferase 22 IU/L (<35); Albumin 4.6 g/dL (3.5-5.0); Albumin Globulin Ratio 1.5 (1.0-2.8); Alkaline Phosphatase 63 U/L (38-126); Blood Urea Nitrogen 15 mg/dL (7-17); Calcium 9.7 mg/dL (8.4-10.2); Carbon Dioxide 22 mmol/L (22-32); Chloride 107 mmol/L (98-107); Cholesterol 182 mg/dL (140-199); Estimated Glomerular Filt Rate > 60 mL/min (>60); Globulin 3.1 g/dL (1.7-4.1); Glucose 109 mg/dL (70-99); HDL Cholesterol 58 mg/dL (40-60); HEMOLYSIS < 15 (0-50); Potassium 4.1 mmol/L (3.4-5.1); Sodium 139 mmol/L (137-145); Total Protein 7.7 g/dL (6.3-8.2); Triglycerides 81 mg/dL (35-150)
[2025-01-12 11:19] LABS: TSH w/ Reflex to FT4 1.47 uIU/mL (0.47-4.68)
== END ==
PROVIDERS: PCP Family Medicine; Referring Provider Family Medicine; Visit Provider Family Medicine
DX: R73.01 Impaired fasting glucose (principal); E78.00 Pure hypercholesterolemia, unspecified
CPT/HCPCS: 36415; 80053; 80061; 83036; 84443; 85025

== ENCOUNTER → 2025-01-20 09:47 | Outpatient (CLI) | payer OTHER, SELFPAY ==
--- NOTE | 2025-01-20 09:51 | DI.CT.S_ITS ---
PROCEDURE: CT CHEST WO CON INDICATIONS: cough pulomnary noduels TECHNIQUE: Noncontrast 5 mm thick sections acquired from the pulmonary apices to the posterior costophrenic angles. 1 mm lung window, 5 mm thick coronal and sagittal and 7 mm axial MIP reformats were then acquired. For radiation dose reduction, the following was used: automated exposure control, adjustment of mA and/or kV according to patient size. COMPARISON: [facility], CR, XR CHEST 2V, 01/05/2025, 10:05. FINDINGS: Image quality: Diagnostic. Lower Neck: No enlarged lymph nodes. Thyroid: No thyroid nodules which require sonographic follow up, per consensus guidelines. Axillae: No enlarged lymph nodes. Chest Wall: Unremarkable. Bones: Unremarkable. Lungs and Pleura: No pneumothorax or pleural effusions. No consolidation or suspicious nodules. Heart: Heart size is normal. No pericardial effusion. Coronary artery calcifications are present. Thoracic Vessels: The aorta and pulmonary arteries demonstrate normal size. Mediastinum and [place]: No enlarged lymph nodes. Esophagus: No wall thickening. Small gastric hiatal hernia. Upper Abdomen: Visualized upper abdomen solid organs and bowel loops appear normal. IMPRESSION: No consolidation or suspicious pulmonary nodules. No acute intrathoracic process. Dictated by: Toy Cummins M.D. on 01/21/2025 at 23:20 Approved by: Toy Cummins M.D. on 01/21/2025 at 23:26
== END ==
PROVIDERS: PCP Family Medicine; Referring Provider Family Medicine; Visit Provider Family Medicine
DX: R91.1 Solitary pulmonary nodule (principal); R05.9 Cough, unspecified
CPT/HCPCS: 71250